=== PATIENT | female | born 1985 | race Caucasian/White ===

== ENCOUNTER → 2016-11-15 | Outpatient (REF) ==
[~2016-11-15] MED LIST: AMITRIPTYLINE H25 M1 PO; ATARAX 10MG10 MG/TAB PO; FLORINEF ACETA0.1 MG PO; MACROBID100 M1 PO; MOTRIN 800800 MG/TAB PO; NO HOME MEDICATIONS; PERCOCET 325 MG1 TA2 PO; PREDNISONE 2.52.5 MG PO; PYRIDIUM200 M1 PO; VESICARE 5MG5 MG PO; VITAMIND3 5000 PO
== END ==
LOC: ZLAB.WCH 16:21
DX: Z01.89 Encounter for other specified special examinations (principal)

== ENCOUNTER → 2016-11-21 | Outpatient (REF) ==
[2016-11-21 15:47] LABS: THYROID STIMULATING HORMONE 2.01 uIU/mL (0.465-4.680)
== END ==
LOC: ZLAB.WCH 15:01
PROVIDERS: Nurse Practitioner Family
DX: Z01.89 Encounter for other specified special examinations (principal)

== ENCOUNTER → 2016-11-27 | Outpatient (REF) ==
[2016-11-27 19:19] LABS: LACTATE DEHYDROGENASE 423 U/L (313-618)
== END ==
LOC: ZLAB.WCH 16:32
PROVIDERS: Nurse Practitioner Family
DX: Z01.89 Encounter for other specified special examinations (principal)

== ENCOUNTER → 2016-12-20 | Outpatient (CLI) | payer OTHER | LOC: COL.PUL 12-18 09:00 | DX: R06.02 Shortness of breath (principal) ==

== ENCOUNTER 2017-01-10 10:03 | Day surgery (SDC) | payer OTHER ==
[~2017-01-10] VITALS: Ht 170.2 cm; Wt 53.6 kg
[~2017-01-10 10:03] MED LIST changes: -AMITRIPTYLINE H25 M1 PO; -ATARAX 10MG10 MG/TAB PO; -FLORINEF ACETA0.1 MG PO; -PREDNISONE 2.52.5 MG PO; -VITAMIND3 5000 PO
[2017-01-10] MEDS ORDERED: AMITRIPTYLINE H25 M1 PO (10:55)
[2017-01-10] MEDS ORDERED: PREDNISONE 2.52.5 MG PO (10:56)
[2017-01-10] MEDS ORDERED: ATARAX 10MG10 MG/TAB PO (10:56)
[2017-01-10] MEDS ORDERED: FLORINEF ACETA0.1 MG PO (10:57)
[2017-01-10] MEDS ORDERED: VITAMIND3 5000 PO (10:57)
[2017-01-10 11:12] VITALS: BP 103/73; PULSE 86; TEMP 96.8
[2017-01-10 12:29] VITALS: BP 111/76; PULSE 101; TEMP 97.5
[2017-01-10 12:45] VITALS: BP 110/70; PULSE 93
[2017-01-10 13:00] VITALS: BP 96/57; PULSE 84
[2017-01-10 13:15] VITALS: BP 102/62; PULSE 88
[2017-01-10 13:30] VITALS: BP 109/79; PULSE 93
== END 2017-01-10 13:48 | disposition home or self-care (01) ==
LOC: SDCO 10:03
DX: R13.12 Dysphagia, oropharyngeal phase (principal); K21.9 Gastro-esophageal reflux disease without esophagitis
CPT/HCPCS: OP; J2250; J3010; J7030

== ENCOUNTER → 2017-04-23 | Outpatient (CLI) | payer OTHER ==
[~2017-04-23] MED LIST changes: +AMITRIPTYLINE H25 M1 PO; +ATARAX 10MG10 MG/TAB PO; +FLORINEF ACETA0.1 MG PO; +PREDNISONE 2.52.5 MG PO; +VITAMIND3 5000 PO
== END ==
LOC: COL.PUL 11:30
DX: R06.02 Shortness of breath (principal)

== ENCOUNTER 2017-08-08 10:13 | Day surgery (SDC) | payer OTHER ==
[~2017-08-08] VITALS: Ht 170.2 cm; Wt 53.6 kg
[2017-08-08] MEDS ORDERED: PLAQUENIL 200M200 MG PO (10:51)
[2017-08-08 11:09] VITALS: BP 107/69; PULSE 89; TEMP 97.5
[2017-08-08 14:30] VITALS: BP 120/77; PULSE 117
[2017-08-08 14:45] VITALS: BP 117/73; PULSE 115
[2017-08-08 16:04] VITALS: BP 120/77; PULSE 116; TEMP 98.6
== END 2017-08-08 15:15 | disposition home or self-care (01) ==
LOC: SDCO 10:13
DX: N30.10 Interstitial cystitis (chronic) without hematuria (principal); E87.6 Hypokalemia; Z90.710 Acquired absence of both cervix and uterus
CPT/HCPCS: J0690; J1100; J2270; J2405; J2704; J3010; J7120

== ENCOUNTER → 2021-01-22 | Outpatient (REF) ==
[~2021-01-22] MED LIST changes: +PLAQUENIL 200M200 MG PO
[2021-01-22 13:13] LABS: CLOSTRIDIUM DIFF A/B POS; CLOSTRIDIUM DIFF A/B INTERP Toxigenic C.diff POS
== END ==
LOC: ZLAB.WCH 11:04
DX: Z01.89 Encounter for other specified special examinations (principal)